=== PATIENT | male | born 2000 | race Native Hawaiian/Other Pacific Islander ===

== ENCOUNTER 2023-04-12 04:57 | Emergency (ER) | payer BC, SELFPAY ==
[2023-04-12 05:04] VITALS: BP 138/80; PULSE 90; RESP 18; TEMP 37.6; O2SAT 98; BMI 33.8
--- NOTE | 2023-04-12 05:31 | ED_ITS ---
HPI - General Adult General Date Seen: 04/12/23 Chief complaint: Skin/Abscess/Foreign Body Stated complaint: infection on his wound, right side abdomen Time Seen by Provider: 04/12/23 04:58 Source: patient and family Mode of arrival: ambulatory Limitations: no limitations History of Present Illness HPI narrative: Patient is a 23-year-old here with Mom for re-evaluation of cellulitis on his abdomen. He was seen at [facility] yesterday after developing redness and pain on the right side of his abdomen. Mom reports that he frequently gets these skin lesions which she wonders if are related to discoid lupus, a condition that her mother has. He says that on his abdomen he had squeeze this area and now has developed redness and pain. He was started on doxycycline and mupirocin yesterday. His CBC was done but he does not know the results. I do not see that a culture was done. He has taken 1 dose of doxycycline. He says that he was told if the redness when outside of the traced lines that he should come to the ER. The redness has gone outside the lines a little bit and so they present for re-evaluation. He has not had fevers or vomiting, no shaking chills. They do feel that the area is less red in general, but it has spread out a little bit. Related Data Allergies Allergy/AdvReac Type Severity Reaction Status Date / Time amoxicillin AdvReac Severe rash Verified 04/12/23 05:09 azithromycin AdvReac Severe Rash Verified 04/12/23 05:09 ceftriaxone AdvReac Severe Rash Verified 04/12/23 05:09 Penicillins AdvReac Severe Rash Verified 04/12/23 05:09 Review of Systems Status of ROS: Reports: 6 or more systems reviewed and unremarkable except as noted in History and below Exam Narrative: Exam Narrative: Vital signs reviewed In general, alert, nontoxic male. Skin: On the abdominal wall there is an approximately 1 cm area of eschar, with surrounding erythema and warmth. This extends slightly outside of the traced area, up to about 1 cm in parts. There is no fluctuance, no crepitus. Abdomen is otherwise soft and nontender. He has multiple scattered skin lesions which have a mildly erythematous base and then a slightly crusted or scabbed over top. Mom says these tend to remain and not heal up. Const: Vital Signs, click to edit/add: Vital Signs - 24 hr 04/12/23 05:04 Temperature 99.6 F Pulse Rate [Right Pulse Oximeter] 90 Respiratory Rate 18 Blood Pressure [Ri ght Upper Arm] 138/80 Pulse Oximetry 98 Oxygen Delivery Me thod Room Air Documenting provider has reviewed patient's vital signs: yes Course Course Hospital Course: Overall, he is well-appearing. Discussed that in the 1st 24 hours after starting antibiotics sometimes the erythema does get a little bit worse. He certainly does not have significant worsening, and does not have any complaints of systemic symptoms. Vital signs are normal. Overall, with only 1 dose of antibiotics I do not think he has had enough of a trial of oral antibiotics to say that he is failing those. I do not think at this point I would recommend IV antibiotics. He does not like shots, he passed out earlier today in clinic when he had his blood drawn. Therefore, for now I think I would recommend just continuing with oral antibiotics for 24 hours and see how he responds. Did discuss with them that I can not predict whether not he will ultimately respond, and that it is possible that this will in fact continued to get worse than require IV antibiotics. I sent off a wound culture. Reviewed that if he is getting significantly worse erythema, or develops high fevers, shaking chills, vomiting etcetera that he should be seen again right away in the ER. Otherwise, they have an appointment tomorrow morning, about 5 hours from now, with his primary doctor. Vital Signs Vital signs: Initial Vital Signs Temperature 99.6 F 04/12/23 05:04 Temperature Source Oral 04/12/23 05:04 Pulse Rate 90 04/12/23 05:04 Pulse Rhythm Regular 04/12/23 05:04 Pulse Strength 3+ Normal 04/12/23 05:04 Respiratory Rate 18 04/12/23 05:04 Blood Pressure 138/80 04/12/23 05:04 Blood Pressure Mean 99 04/12/23 05:04 Blood Pressure Position Sitting 04/12/23 05:04 Pulse Oximetry 98 04/12/23 05:04 Oxygen Delivery Method Room Air 04/12/23 05:04 Vital Signs Temperature 99.6 F 04/12/23 05:04 Pulse Rate 90 04/12/23 05:04 Respiratory Rate 18 04/12/23 05:04 Blood Pressure 138/80 04/12/23 05:04 Pulse Oximetry 98 04/12/23 05:04 Oxygen Delivery Method Room Air 04/12/23 05:04 Temperature 99.6 F 04/12/23 05:04 Pulse Rate 90 04/12/23 05:04 Respiratory Rate 18 04/12/23 05:04 Blood Pressure 138/80 04/12/23 05:04 Pulse Oximetry 98 04/12/23 05:04 Oxygen Delivery Method Room Air 04/12/23 05:04 Discharge Plan Discharge Clinical Impression: Cellulitis Patient Disposition: Home, Self-Care Condition: Stable Instructions: Cellulitis (ED) Additional Instructions: Continue current antibiotics. Ibuprofen and/or Tylenol as needed for pain. You can use warm compresses as discussed. Primary care follow-up later today as planned. If at any time you show dramatic worsening of redness, new symptoms such as fevers, shaking chills, vomiting, return for re-evaluation in the ER. Activity Level: No Restrictions Discharge Diet: Regular Stand Alone Forms: MyHealth Info Instructions
== END 2023-04-12 05:56 | disposition home or self-care (01) ==
LOC: ED 05:54
PROVIDERS: Emergency Provider Emergency Medicine; PCP Family Medicine
DX: L03.311 Cellulitis of abdominal wall (principal)
CPT/HCPCS: 87070; 87186; 99283; 99284